=== PATIENT | female | born 1970 | race Caucasian/White ===

== ENCOUNTER 2017-09-07 11:02 | Emergency (ER) | payer OTHER ==
[~2017-09-07] VITALS: Ht 162.6 cm; Wt 70.0 kg
[~2017-09-07 11:02] MED LIST: CLIN1CAP5 PO; Z.0.NO CURRENT MEDS
[2017-09-07 11:08] VITALS: BP 173/101; PULSE 72; RESP 17; O2SAT 100
--- NOTE | 2017-09-07 11:29 | PD ---
HPI Chief Complaint: Chest Pain Time Seen by Provider: 11:11 Travel History International Travel<30 days: No Contact w/Intl Traveler<30days: No Traveled to known affect area: No History of Present Illness HPI Patient's 47 years old. She arrives with police escort. She was arrested this morning and shortly thereafter developed chest pain. Location retrosternal. Timing intervention. No history diabetes hypertension hyperlipidemia. The patient smokes. No shortness of breath. No fever. She reports a history of SVT and no cardiac history otherwise. PFSH Past Medical History Anxiety: Yes Cardiovascular Problems: Yes (SVT) Diminished Hearing: No Headaches: Yes Hypertension: Yes Migraines: Yes Tetanus Vaccination: Unknown ?: Not Tubal Ligation: Yes Past Surgical History Cholecystectomy: Yes Social History Alcohol Use: Yes (STATES OCCASIONALLY, 4 BEERS TONIGHT) Tobacco Use: Yes (1/2 PPD) Substance Use: No Allergies-Medications (Allergen,Severity, Reaction): Coded Allergies: *MDRO Multi-Drug Resistant Organism (Verified Allergy, Unknown, 05/11/17) MRSA Sulfa (Sulfonamide Antibiotics) (Unverified Adverse Reaction, Severe, BLISTERS, 05/11/17) Reported Meds & Prescriptions Reported Meds & Active Scripts Active Clindamycin Hcl (Clindamycin HCl) 150 Mg Cap 150 Mg PO Q6H 10 Days Reported No [facility]Miscellaneous Medication[facility] Systems Except as stated in HPI: all other systems reviewed are Neg General / Constitutional: No: Fever Physical Exam Narrative GENERAL: Well-nourished well-developed 39-year-old female no distress SKIN: Focused skin assessment warm/dry. HEAD: Atraumatic. Normocephalic. EYES: Pupils equal and round. No scleral icterus. No injection or drainage. ENT: No nasal bleeding or discharge. Mucous membranes pink and moist. NECK: Trachea midline. No JVD. CARDIOVASCULAR: Regular rate and rhythm. No murmur appreciated. RESPIRATORY: No accessory muscle use. Clear to auscultation. Breath sounds equal bilaterally. GASTROINTESTINAL: Abdomen soft, non-tender, nondistended. Hepatic and splenic margins not palpable. MUSCULOSKELETAL: No obvious deformities. No clubbing. No cyanosis. No edema. NEUROLOGICAL: Awake and alert. No obvious cranial nerve deficits. Motor grossly within normal limits. Normal speech. PSYCHIATRIC: Appropriate mood and affect; insight and judgment normal. Data Data Last Documented VS Vital Signs Date Time Temp Pulse Resp B/P (MAP) Pulse Ox O2 Delivery O2 Flow Rate FiO2 09/07/17 11:13 64 09/07/17 11:08 17 173/101 (125) 100 Vital Signs Date Time Temp Pulse Resp B/P (MAP) Pulse Ox O2 Delivery O2 Flow Rate FiO2 09/07/17 11:13 64 09/07/17 11:08 72 17 173/101 (125) 100 Orders Orders Electrocardiogram (09/07/17 11:11) Chest, Single Ap (09/07/17 11:11) Ed Discharge Order (09/07/17 11:42) MDM Medical Decision Making Medical Screen Exam Complete: Yes Emergency Medical Condition: Yes Differential Diagnosis NSTEMI, unstable angina, coronary vasospasm, PE, PTX, aortic dissection, pericarditis, myocarditis, endocarditis, PNA, esophageal disease, aneurysm, musculoskeletal etiologies, anxiety, cocaine/sympathomimetic abuse Narrative Course EKG shows a sinus rhythm at a rate of 68 normal axis intervals no evidence of ischemia Chest x-ray shows no acute disease. The patient is a ready for discharge Diagnosis Primary Impression: Chest pain Qualified Codes: R07.9 - Chest pain, unspecified Referrals: Primary Care Physician 2 days Med/Other Pt SpecificInfo: No Change to Meds Disposition: 01 DISCHARGE HOME Condition: Stable Vic Watt MD Sep 07, 2017 11:29
[2017-09-07 11:46] VITALS: TEMP 98.7
--- NOTE | 2017-09-07 11:47 | RADRPT ---
EXAM DATE/TIME: 09/07/2017 11:19 [facility] COMPARISON: No previous studies available for comparison. INDICATIONS : Chest pain. MEDICAL HISTORY : None. SURGICAL HISTORY : None. ENCOUNTER: Initial ACUITY: 1 day PAIN SCORE: 5/10 LOCATION: Bilateral chest FINDINGS: A single view of the chest demonstrates the lungs to be symmetrically aerated without evidence of mas s, infiltrate or effusion. The cardiomediastinal contours are unremarkable. Osseous structures are intact. CONCLUSION: No acute disease. Leandro Leonard MD on September 07, 2017 at 11:46 Board Certified Radiologist. This report was verified electronically.
--- NOTE | 2017-09-07 17:54 | EKG ---
Date Performed: 09/07/2017 Time Performed: 11:38:03 PTAGE: 47 years EKG: Sinus rhythm NORMAL ECG NO PREVIOUS TRACING DOCTOR: Kendall Webster Interpretating Date/Time 09/07/2017 17:54:00
== END 2017-09-07 12:01 ==
LOC: NEPD 11:02
DX: R07.9 Chest pain, unspecified (principal); F41.9 Anxiety disorder, unspecified; I47.1 Supraventricular tachycardia; I10 Essential (primary) hypertension; F17.200 Nicotine dependence, unspecified, uncomplicated
CPT/HCPCS: 71010; 93005; 99284